=== PATIENT | female | born 1995 | race Caucasian/White ===

== ENCOUNTER 2017-11-11 22:26 | Outpatient (CLI) | payer MEDICAID ==
[~2017-11-11] VITALS: Ht 154.9 cm; Wt 95.5 kg
[2017-11-11 22:51] VITALS: BP 113/67; PULSE 82; TEMP 98
[2017-11-11 23:10] VITALS: BP 113/67; PULSE 82; TEMP 98
[2017-11-12 00:10] VITALS: BP 106/57; PULSE 89
== END 2017-11-12 00:20 | disposition home or self-care (01) ==
LOC: LDRO 22:26
DX: O99.89 Other specified diseases and conditions complicating pregnancy, childbirth and the puerperium (principal); R10.9 Unspecified abdominal pain; Z3A.39 39 weeks gestation of pregnancy

== ENCOUNTER 2017-11-14 20:13 | Inpatient (IN) | payer MEDICAID ==
[2017-11-14] VITALS (10 sets, daily range): BP systolic 104–148; BP diastolic 58–82; PULSE 80–104; TEMP 97.4–98.4
[~2017-11-14] VITALS: Ht 154.9 cm; Wt 95.9 kg
[2017-11-14 22:30] LABS: BASO % 0.2 % (0.0-2.0); EOS % 0.1 % (0-4.0); GRAN # 7.7 (1.4-6.5); GRAN % 77.9 % (42.2-75.2); HEMOGLOBIN 11.7 g/dl (12.5-16.0); LYMPH # 1.6 (1.2-3.4); LYMPH % 16.4 % (20.0-51.0); MEAN CELL VOLUME 88 fl (80.0-100.0); MEAN CORPUSCULAR HEMOGLOBIN 30 pg (27.0-31.0); MEAN CORPUSCULAR HGB CONC 34 g/dl (33.0-37.0); MEAN PLATELET VOLUME 11.3 fl (7.4-10.4); MONO # 0.5 (0.1-0.6); PLATELET COUNT 271 K/mm3 (130-400); RED BLOOD COUNT 3.89 M/mm3 (4.10-5.30); REDCELL DISTRIBUTION WIDTH-CV 13.7 % (11.5-14.5)
[2017-11-14 22:31] LABS: HEMATOCRIT 34.3 % (37.0-47.0)
[2017-11-15] VITALS (26 sets, daily range): BP systolic 99–139; BP diastolic 55–70; PULSE 69–96; TEMP 97.8–98.5
[2017-11-16 07:35] VITALS: BP 121/71; PULSE 71; TEMP 97.7
[2017-11-16 16:00] VITALS: BP 129/65; PULSE 75; TEMP 98
== END 2017-11-16 18:30 | disposition home or self-care (01) | DRG 775 ==
LOC: LDRO 20:13 → LDR 21:48 → LDRO 21:49 → LDR 21:50 → OB 11-15 16:32
PROVIDERS: Obstetrics & Gynecology
PROC: 10E0XZZ Delivery of Products of Conception, External Approach (ICD-10-PCS; principal; 2017-11-14)
PROC: 0HQ9XZZ Repair Perineum Skin, External Approach (ICD-10-PCS; 2017-11-14)
DX: O48.0 Post-term pregnancy (principal); Z37.0 Single live birth; O70.0 First degree perineal laceration during delivery; Z3A.40 40 weeks gestation of pregnancy
CPT/HCPCS: J2590; J2795; J7120